=== PATIENT | male | born 1980 | race Caucasian/White ===

== ENCOUNTER 2023-03-15 11:28 | Emergency (ER) | payer OTHER, SELFPAY ==
[2023-03-15 11:40] VITALS: BP 134/82; PULSE 89; RESP 16; TEMP 37.7; O2SAT 100
--- NOTE | 2023-03-15 12:25 | ED.URI ---
HPI - URI/Sore Throat General Chief Complaint: Upper Respiratory Infection Stated Complaint: Cough;Congestion Time Seen by Provider: 03/15/23 12:13 Source: patient and RN notes reviewed Mode of arrival: ambulatory Limitations: no limitations History of Present Illness HPI Narrative: Patient presents today complaining of fever and chills 8 days ago with congestion and sinus pressure, ear pain, sore throat, rhinorrhea cough and wheezing x4 days. He has tried Mucinex, DayQuil, NyQuil, buttocks, and cough drops without much relief. History of asthma. States he does not take anything for his asthma, but does have a rescue inhaler at home. Related Data Home Medications Medication Instructions Recorded Confirmed allopurinol 100 mg tablet 200 mg PO DAILY 03/15/23 03/15/23 lisinopril 10 mg tablet 10 mg PO DAILY 03/15/23 03/15/23 metformin 500 mg tablet,extended 500 mg PO DAILY 03/15/23 03/15/23 release 24 hr semaglutide 2 mg/dose (8 mg/3 mL) 2 mg subcut WEEKLY 03/15/23 03/15/23 subcutaneous pen injector (Ozempic) Allergies Allergy/AdvReac Type Severity Reaction Status Date / Time No Known Allergies Allergy Verified 03/15/23 12:29 Review of Systems Review of Systems: CONSTITUTIONAL: Denies body aches, fever, chills, or sweats. EYES: Denies visual changes, redness, or discharge. ENT: Denies rhinorrhea. + congestion, sinus pressure, sore throat, rhinorrhea, ear pain CARDIOVASCULAR: Denies chest pain, palpitations, or edema. RESPIRATORY: Denies dyspnea.+ cough GASTROINTESTINAL: Denies abdominal pain, nausea, vomiting, or diarrhea. GENITOURINARY: Denies dysuria or hematuria. SKIN: Denies rash, itching, or wounds. MUSCULOSKELETAL: Denies back pain, joint pain, or myalgia. NEUROLOGIC: Denies headache, numbness, tingling, or weakness. PSYCH: Denies depression or anxiety. [facility] Past Medical History Medical History (Updated 03/15/23 @ 12:29 by Chelsey Ray, SNUBBER, ) Asthma Comments At time of signature, I have reviewed and agree with nursing past medical, surgical, social and family history unless otherwise noted. Please see nursing chart for further information. There is no relevant family history pertinent to the presenting complaint Exam Narrative: GENERAL: Well-appearing, well-nourished, and in no acute distress. HEAD: Normocephalic, atraumatic. EYES: EOMI. No redness or drainage. Conjunctivae normal. ENT: Mucous membranes pink and moist. Nares congested with some scant purulent discharge. Bilateral frontal and maxillary sinus tenderness with palpation. TMs normal bilaterally. Throat mildly erythematous without edema or exudate. Uvula midline. NECK: Normal AROM. Supple. No lymphadenopathy. CHEST: No respiratory distress. Clear to auscultation. Harsh cough noted. HEART: Regular rate and rhythm. No murmur appreciated. EXTREMITIES: Normal range of motion. No edema. SKIN: Warm, dry, no rash. Capillary refill normal. Normal skin turgor. NEURO: No focal deficits. Alert and oriented x3. Gait steady. PSYCH: Normal affect. No signs of depression or anxiety. Course Course Level of Care: Express Care Visit Vital Signs Vital signs: Vital Signs Temperature 99.9 F H 03/15/23 11:40 Pulse Rate 89 03/15/23 11:40 Respiratory Rate 16 03/15/23 11:40 Blood Pressure 134/82 03/15/23 11:40 Pulse Oximetry 100 03/15/23 11:40 Temperature 99.9 F H 03/15/23 11:40 Pulse Rate 89 03/15/23 11:40 Respiratory Rate 16 03/15/23 11:40 Blood Pressure 134/82 03/15/23 11:40 Pulse Oximetry 100 03/15/23 11:40 Reviewed MDM - URI/Sore Throat MDM Narrative Medical decision making narrative: Patient will be placed on doxycycline and prednisone for sinusitis and bronchitis. States he has an albuterol rescue inhaler at home. Differential Diagnosis Differential diagnosis: Likely upper respiratory infection, otitis media, sinusitis, viral infection, bronchitis, influenza, pharyngitis
== END 2023-03-15 12:31 | disposition home or self-care (01) ==
PROVIDERS: Emergency Provider Nurse Practitioner
DX: J40 Bronchitis, not specified as acute or chronic (principal); J01.90 Acute sinusitis, unspecified; Z20.822 Contact with and (suspected) exposure to COVID-19; J45.909 Unspecified asthma, uncomplicated
CPT/HCPCS: 87081; 87426; 87804; 87880; 99213; C9803; G0463

== ENCOUNTER 2024-08-07 09:52 | Emergency (ER) | payer BC, SELFPAY ==
[2024-08-07 10:40] VITALS: BP 153/76; PULSE 85; RESP 16; TEMP 36.8; O2SAT 100
--- NOTE | 2024-08-07 10:59 | ED.URI ---
HPI - URI/Sore Throat General Chief Complaint: Upper Respiratory Infection Stated Complaint: SINUS CONGESTION Source: patient Mode of arrival: ambulatory Limitations: no limitations History of Present Illness HPI Narrative: Patient is a 44 year old male who presents to the clinic with complaints of sinus congestion x 1 month and sore throat. He states that he was treated with doxycycline 2 weeks ago for sinus congestion by his ears, nose, and throat doctor. Denies any shortness of breath, difficulty swallowing, nausea, vomiting, or diarrhea. Related Data Home Medications Medication Instructions Recorded Confirmed Last Taken Type allopurinol 100 mg tablet 200 mg PO DAILY 03/15/23 03/15/23 Unknown History lisinopril 10 mg tablet 10 mg PO DAILY 03/15/23 03/15/23 Unknown History metformin 500 mg tablet,extended 500 mg PO DAILY 03/15/23 03/15/23 Unknown History release 24 hr semaglutide 2 mg/dose (8 mg/3 mL) 2 mg subcut WEEKLY 03/15/23 03/15/23 Unknown History subcutaneous pen injector (Ozempic) Allergies Allergy/AdvReac Type Severity Reaction Status Date / Time No Known Allergies Allergy Verified 03/15/23 12:29 Review of Systems Review of Systems: CONSTITUTIONAL: Denies body aches, fever, chills, or sweats. EYES: Denies visual changes, redness, or discharge. ENT: Denies rhinorrhea or otalgia. Reports congestion and sore throat. CARDIOVASCULAR: Denies chest pain, palpitations, or edema. RESPIRATORY: Denies cough or dyspnea. GASTROINTESTINAL: Denies abdominal pain, nausea, vomiting, or diarrhea. GENITOURINARY: Denies dysuria or hematuria. SKIN: Denies rash, itching, or wounds. MUSCULOSKELETAL: Denies back pain, joint pain, or myalgia. NEUROLOGIC: Denies headache, numbness, tingling, or weakness. PSYCH: Denies depression or anxiety. All systems reviewed & are unremarkable except as noted in HPI and below PMFSH Past Medical History Medical History (Updated 08/07/24 @ 11:33 by Beena Morrison, FREDERICK) Asthma Comments At time of signature, I have reviewed and agree with nursing past medical, surgical, social and family history unless otherwise noted. Please see nursing chart for further information. There is no relevant family history pertinent to the presenting complaint. Exam Narrative: GENERAL: Well-appearing, well-nourished, and in no acute distress. EYES: EOMI. No redness or drainage. Conjunctivae normal. ENT: Mucous membranes pink and moist. Nares clear. No rhinorrhea. TMs normal bilaterally. Throat Erythematous, without tonsillar exudate, uvula midline. Nasal congestion noted. NECK: Normal AROM. Supple. No lymphadenopathy. CHEST: No respiratory distress. Clear to auscultation. HEART: Regular rate and rhythm. No murmur appreciated. Normal peripheral pulses. ABDOMEN: Soft, nontender, nondistended, normal active bowel sounds. SKIN: Warm, dry, no rash. Capillary refill normal. Normal skin turgor. NEURO: No focal deficits. Alert and oriented x3. Gait steady. PSYCH: Normal affect. No signs of depression or anxiety. Course Course Level of Care: Express Care Visit Vital Signs Vital signs: Vital Signs Temperature 98.3 F 08/07/24 10:40 Pulse Rate 85 08/07/24 10:40 Respiratory Rate 16 08/07/24 10:40 Blood Pressure 153/76 H 08/07/24 10:40 Pulse Oximetry 100 08/07/24 10:40 Temperature 98.3 F 08/07/24 10:40 Pulse Rate 85 08/07/24 10:40 Respiratory Rate 16 08/07/24 10:40 Blood Pressure 153/76 H 08/07/24 10:40 Pulse Oximetry 100 08/07/24 10:40 Reviewed. MDM - URI/Sore Throat MDM Narrative Medical decision making narrative: Discussed physical exam findings. Advised supportive measures and signs/symptoms to go to the ER. Pt is appropriate for outpt treatment and follow up. Differential Diagnosis Differential diagnosis: Likely upper respiratory infection, sinusitis, viral infection and bronchitis Critical Care Time Critical Care Time Critical Care Time: No Discharge Plan Discharge Clinical Impression: Upper respiratory infection Qualifiers: URI type: unspecified URI Qualified Code(s): J06.9 - Acute upper respiratory infection, unspecified Patient Disposition: Home Condition: Stable Instructions: Upper Respiratory Infection (DC) Additional Instructions: Take antibiotic as prescribed. Take steroid as prescribed. Recommend Zyrtec (or Claritin/Colleen) You may try Afrin [id number]. This can only be done for 3 days. Tylenol 1000mg every 8 hours as needed for pain Symptomatic treatment includes: rest, fluids, and increase humidity of the air at home. Follow up with your primary care provider in 1 week. Go to the ER for worsening symptoms or concerns. Patient Language: Serbian Prescriptions: New prednisone 20 mg tablet 40 mg PO DAILY 5 Days Qty: 10 0RF azithromycin [Zithromax Z-Yevgeniy] 250 mg tablet See Rx Instructions PO .COMPLEX Qty: 6 0RF Rx Instructions: For 250 mg dose pack: take 500 mg today (day 1), then 250 mg for 4 days (days 2-5) No Action allopurinol 100 mg tablet 200 mg PO DAILY lisinopril 10 mg tablet 10 mg PO DAILY metformin 500 mg tablet extended release 24 hr 500 mg PO DAILY Ozempic 2 mg/dose (8 mg/3 mL) pen injector 2 mg SUBCUT WEEKLY prednisone 50 mg tablet 50 mg PO DAILY 5 Days Qty: 5 0RF doxycycline hyclate 100 mg tablet 100 mg PO BID 7 Days Qty: 14 0RF Follow-up/Referrals: Andrei,RADHA Salvador [Primary Care Provider] - Time of Disposition: 11:39
[2024-08-07 11:26] LABS: EDSTREPNEGPOS1 Negative (Negative)
== END 2024-08-07 11:43 | disposition home or self-care (01) ==
PROVIDERS: PCP Nurse Practitioner Family
DX: J06.9 Acute upper respiratory infection, unspecified (principal); J45.909 Unspecified asthma, uncomplicated
CPT/HCPCS: 87081; 87880; 99213; G0463